=== PATIENT | female | born 1975 | race Caucasian/White ===

== ENCOUNTER 2018-02-27 12:13 | Outpatient (RCR) | payer BC ==
[2014-05-15 07:48] VITALS: BMI 20.4
[~2018-02-27 12:13] MED LIST: CEF300 PO; DAR100 PO; DOCU240C4 PO; IBU800 PO; IBUP800T37 PO; LACT1CAP9 PO; LEVO-85 PO; LOR5 PO; MULT-885 PO; NAP550 PO; OXYC-865 PO; PER PO; [UNRECOGNIZED DRUG - REMARK]
[2018-02-27] MEDS ORDERED: SINCALIDE 5 MCG VIAL INJ ONE (12:33)
[2018-02-27] MEDS ORDERED: WATER FOR INJ,STERILE 20 ML 0 ML ONE (12:33)
[2018-03-02] MEDS ORDERED: SINCALIDE 5 MCG VIAL INJ ONE (13:48)
[2018-03-02] MEDS ORDERED: WATER FOR INJ,STERILE 20 ML 20 ML ONE (13:48)
--- NOTE | 2018-03-02 15:23 | RADIOLOGY IMAGING REPORT ---
FACILITY: [facility] PATIENT NAME: Radha Cordero : 1975 MR: [id number] V: [id number] EXAM DATE: ORDERING PHYSICIAN: BLANCHE WATSON TECHNOLOGIST: Location: [facility] Patient: Radha Cordero : 1975 Visit/Account:[id number] Date of Sevice: 03/02/2018 Examination: Nuclear Medicine HIDA Scan with Kinevac Stimulation COMPARISON: No relevant comparison studies. HISTORY: Bloating. Abdominal pain. Constipation. TECHNIQUE: 6.1 mCi Tc99m Mebrofenin was injected intravenously. Multiple sequential gamma camera giovanni ges of the abdomen were obtained for 60 minutes. At that time, 2.1 mcg Kinevac was injected intraveno usly and an additional 30 minutes of gamma camera imaging data was acquired. A computer-generated reg ion of interest was placed around the gallbladder and time-activity curve for the gallbladder was chen ived. The gallbladder ejection fraction was calculated. FINDINGS: Liver uptake and excretion: normal Time to appearance: Bile ducts: 5 minutes. Gallbladder: 6 minutes. Duodenum: 21 minutes. Duodenogastric reflux / extravasation: none Post IV Kinevac: Ejection fraction = 89 %, (normal > 35%). Patient symptoms: CCK administration resulted in abdominal pressure and some nausea. This is of uncertain significance given the otherwise unremarkable evaluation of the gallbladder and biliary sys tem and in some patients, these symptoms can be a side effect to the administration of exogenous CCK. IMPRESSION: 1. No evidence of cholecystitis. The common bile duct and cystic duct are patent. 2. Gallbladder ejection fraction of 89%. Report Dictated By: Jose Bonilla MD at 03/02/2018 3:17 PM Report E-Signed By: Jose Bonilla MD at 03/02/2018 3:19 PM [id number]
== END 2018-03-02 18:00 | disposition home or self-care (01) ==
LOC: NUC 12:13 → EDSTATUS 02-28 13:14 → NUC 03-02 18:00
PROVIDERS: ATTEND Family Medicine
DX: R10.9 Unspecified abdominal pain (principal); R14.0 Abdominal distension (gaseous); K59.00 Constipation, unspecified
CPT/HCPCS: 78226; A9537; J2805

== ENCOUNTER 2018-10-09 15:28 | Outpatient (RCR) | payer BC ==
[2014-05-15 07:48] VITALS: Ht 160 cm
[~2018-10-09 15:28] MED LIST changes: +ESTR42.5 PV; +LACT1CAP6 PO
--- NOTE | 2018-10-09 17:06 | Medical Nutrition Therapy ---
Nutrition Anthropometrics Height (Inches): 63 Weight (Pounds): 115 BMI: 20.4 Gareth Nutrition Score: Gareth Nutrition Risk Score: Dietary Referral Nutrition Risk Factors: Nutrition Risk Comment: Nutrition/Food History Breakfast: probiotic, coffe, oatmeal, almond milk, walnuts, flaxseed, sugar berries Lunch: leftover goulash Dinner: vegan miles pie, or stuffed pepper Snacks: homemade trial mix, [place] bar Nutritional Education Nutrition Education Topic: Other (unplanned wt loss with BMI 20.4) Learning Readiness: Eager Teaching Methods: Discussion, Handout Response to Teaching: Verbalize understanding Teaching Recipient: Patient Nutrition Counseling: Pt with hx of adhesions and IBS demonstated recent wt loss to 115# from usual wt 123#. Pt has been following gluten free and FODMAP diet for several years but has not complied 100%. Pt states when she ate gluten she did get a rash. Recommended pt avoid gluten as she may be gluten intolerant rather than celiac. Pt states feels better following low FODMAP diet but admitts to eating some high FODMAP foods. Pt has never do elimination diet of the vaious types of FODMP catagories. Pt will try eleimination diet of avoiding high fructose, then high lactose , fructans, galactans and polyols. Pt will wait 1 week between each trial. Pt will then add back the catagories that she found she could tolerate. Also discussed pt's high stress level and how to reduce stress to help with abdominal pain. Recommend pt find quite place to eat at work for calming affect. Pt states is trying to reduce hrs at work to help with stress level. Pt will email RD on how elimination diet is working and will set up f/u if appropriate. Nutrition Monitoring & Eval RD Patient Assessment Time: 45 minutes Nutritional Comment: provided 45minute MNT for unplanned wt loss with BMI 20.4. Copies To Copies to: BERYL GUZMAN MD ; JAELYN LO Oct 09, 2018 17:06
== END 2018-11-13 ==
LOC: DIET 15:28
PROVIDERS: ATTEND Obstetrics & Gynecology
DX: Z71.3 Dietary counseling and surveillance (principal); R63.4 Abnormal weight loss; R53.83 Other fatigue; Z68.20 Body mass index [BMI] 20.0-20.9, adult
CPT/HCPCS: 97802